=== PATIENT | male | born 1975 | race Hispanic/Latino ===

== ENCOUNTER 2019-09-14 20:21 | Observation (INO) | payer BC ==
[~2019-09-14] VITALS: Ht 177.8 cm; Wt 100.3 kg
[2019-09-14] MEDS ORDERED: IBUPROFEN 600 MG TAB PO ONE (20:45)
[2019-09-14] MEDS ORDERED: IPRATROPIUM BROMIDE 0.02% 2.5 ML NEB NEB STA ×2 (20:47→23:51)
[2019-09-14] MEDS ORDERED: ALBUTEROL SULF 0.083% NEB SOLN 3 ML NEB NEB STA ×2 (20:47→23:51)
[2019-09-14] MEDS ORDERED: DEXAMETHASONE SOD PHOS 10 MG/1 ML VIAL IM ONE (21:00)
--- NOTE | 2019-09-14 21:21 | Diagnostic Imaging Report ---
EXAMINATION: CHEST 2 VIEWS INDICATION: Sore throat, cough COMPARISON: None FINDINGS: PA and lateral views TUBES and LINES: None. LUNGS: Lungs are well inflated. Airspace opacity in the left lower posterolateral lung. Obscured left hemidiaphragm. PLEURA: No pleural effusion or pneumothorax. HEART AND MEDIASTINUM: The cardiomediastinal silhouette is unremarkable. BONES AND SOFT TISSUES: No acute osseous lesion. Soft tissues are unremarkable. UPPER ABDOMEN: No free air under the diaphragm. IMPRESSION: Airspace opacity in the left lower posterolateral lung could be pneumonia or atelectasis. Signed by: Luigi Fontana DO on 09/14/2019 9:18 PM
[2019-09-14] MEDS ORDERED: CEFTRIAXONE SOD 1 GM/NS 50 ML 50 ML IV ONE (21:56)
[2019-09-14] MEDS ORDERED: SODIUM CHLORIDE 0.9% 1000ML 1,000 ML IV STA (21:56)
[2019-09-14 23:53] LABS: BASOPHILS % 0.2 % (0.0-1.0); HEMOGLOBIN 13.8 g/dL (14.0-18.0); LYMPHOCYTES # (AUTO) 1.1 (1.0-3.2); LYMPHOCYTES % 11.1 % (18.0-39.1); MEAN CORPUSCULAR HEMOGLOBIN 29.5 pg (28-32); MEAN CORPUSCULAR HGB CONC 34.5 g/dL (31-35); MEAN CORPUSCULAR VOLUME 85.5 fL (81-99); MONOCYTES # (AUTO) 0.8 (0.2-0.8); MONOCYTES % 8.8 % (4.4-11.3); NEUTROPHILS # (AUTO) 7.5 (2.1-6.9); NEUTROPHILS % 79.6 % (38.7-80.0); PLATELET COUNT 176 x10e3/uL (140-360); RED BLOOD COUNT 4.68 x10e6/uL (4.3-5.7); RED CELL DISTRIBUTION WIDTH 14.1 % (11.7-14.4)
[2019-09-15 00:13] LABS: ALANINE AMINOTRANSFERASE 37 IU/L (0-55); ALBUMIN 3.5 g/dL (3.5-5.0); ALBUMIN/GLOBULIN RATIO 1.1 (0.8-2.0); ALKALINE PHOSPHATASE 90 IU/L (40-150); ANION GAP 15.6 mmol/L (8-16); BLOOD UREA NITROGEN 12 mg/dL (7-26); BUN/CREATININE RATIO 12 (6-25); CALCIUM 8.8 mg/dL (8.4-10.2); CARBON DIOXIDE 26 mmol/L (22-29); CHLORIDE 96 mmol/L (98-107); CREATININE, SERUM 0.98 mg/dL (0.72-1.25); EST GLOMERULAR FILTRATION RATE > 60 ML/MIN (60-); GLUCOSE 211 mg/dL (74-118); SODIUM 135 mmol/L (136-145)
[2019-09-15 00:23] LABS: POTASSIUM 2.6 mmol/L (3.5-5.1)
[2019-09-15] MEDS ORDERED: POTASSIUM CHLORIDE 20 MEQ TAB CR PO STA (00:40)
[2019-09-15] MEDS ORDERED: POTASSIUM CHLORIDE 20MEQ/100ML 100 ML IV ONE (00:45)
--- NOTE | 2019-09-15 02:30 | NUR ---
MD TO ROOM. PT O2 SAT NOTED DROPPING TO 88-92% PERIODICALLY BUT QUICKLY IMPROVES TO 96-98%. PT NOTED DIAPHORETIC. NO FEVER NOTED AT THIS TIME. BS ASSESSED, BS 236.
--- NOTE | 2019-09-15 02:45 | NUR ---
PT ASSISTED UP OUT BED TO AMBULATE IN HALLWAY ON RA PER MD REQUEST. O2 SAT ASSESSED P AMBULATING IN HALLWAY FOR 2 MINUTES. O2 SAT 96 % ON RA. Addendum: 09/15/19 at 0451 by SAMI PT ASSISTED UP OUT OF BED TO AMBULATE IN HALLWAY ON RA PER MD REQUEST. O2 SAT ASSESSED P AMBULATING IN HALLWAY FOR 2 MINUTES. O2 SAT 96 % ON RA.
--- NOTE | 2019-09-15 03:20 | NUR ---
PT O2 SAT 88-92% ON RA. PT NOTED SLEEPING. NO DISTRESS NOTED. O2 SAT IMPROVED TO 96-98% AFTER WAKING PATIENT. DR GRAYSON HOUSTON.
--- NOTE | 2019-09-15 03:38 | NUR ---
BLOOD DRAWN FOR REPEAT BMP PER MD ORDERS. LABELLED AND SENT TO LAB.
--- NOTE | 2019-09-15 03:45 | NUR ---
O2 SAT 86% ON RA. PT PLACED ON O2 3L NC. O2 SAT IMPROVED TO 98%. MD HOUSTON.
--- NOTE | 2019-09-15 04:00 | NUR ---
O2 TURNED OFF PER MD REQUEST TO ASSESS O2 ON RA. O2 97% ON RA AT THIS TIME.
[2019-09-15 04:03] LABS: ANION GAP 16.7 mmol/L (8-16); BLOOD UREA NITROGEN 10 mg/dL (7-26); BUN/CREATININE RATIO 12 (6-25); CALCIUM 8.7 mg/dL (8.4-10.2); CARBON DIOXIDE 23 mmol/L (22-29); CHLORIDE 106 mmol/L (98-107); CREATININE, SERUM 0.83 mg/dL (0.72-1.25); EST GLOMERULAR FILTRATION RATE > 60 ML/MIN (60-); GLUCOSE 246 mg/dL (74-118); POTASSIUM 3.7 mmol/L (3.5-5.1); SODIUM 142 mmol/L (136-145)
--- NOTE | 2019-09-15 04:15 | NUR ---
TO ROOM TO ASSESS VS. PT NOTED DIAPHORETIC. NO FEVER NOTED AT THIS TIME. O2 SAT 91% ON RA. O2 2L NC REPLACED. O2 SAT IMPROVED TO 98%. INFORMED.
[2019-09-15] MEDS ORDERED: AZITHROMYCIN 500MG/NS 250 ML 250 ML IV ONE (04:30)
[2019-09-15] MEDS ORDERED: SODIUM CHLORIDE 0.9% 50ML 50 ML ONE (04:48)
[2019-09-15] MEDS ORDERED: IOPAMIDOL 370 MG/ML 200 ML INFUS..BTL INJ ONE (04:48)
[2019-09-15] MEDS ORDERED: LOPRESSOR25 MG PO (05:59)
[2019-09-15] MEDS ORDERED: CLONIDINE HCL0.1 MG PO (05:59)
[2019-09-15] MEDS ORDERED: LOSARTAN-HCTZ1 EAC2 PO (05:59)
[2019-09-15] MEDS ORDERED: AMLODIPINE BESY10 MG PO (05:59)
[2019-09-15] MEDS ORDERED: LOVASTATIN40 MG PO (05:59)
[2019-09-15] MEDS ORDERED: JANUMET 50-1,01 EACH PO (05:59)
--- NOTE | 2019-09-15 06:27 | Diagnostic Imaging Report ---
EXAM: CT Chest WITH contrast 09/15/2019 4:30 AM INDICATION: Hypoxia COMPARISON: Chest radiograph 09/14/2019 TECHNIQUE: Chest was scanned utilizing a multidetector helical scanner from the lung apex through the level of the adrenal glands without administration of IV contrast. Coronal and sagittal reformations were obtained. Routine protocol was performed. IV CONTRAST: 100 mL of Isovue 300 COMPLICATIONS: None RADIATION DOSE: Total DLP: 532 mGy*cm Estimated effective dose: (DLP x 0.014 x size factor) mSv CTDIvol has been reviewed. It is below the limits set by the Radiation Protocol Committee (RPC). Dose modulation, iterative reconstruction, and/or weight based adjustment of the mA/kV was utilized to reduce the radiation dose to as low as reasonably achievable. FINDINGS: LINES/ TUBES: None. LUNGS AND AIRWAYS: A 5 mm nodule in the superior segment of the right lower lobe. Subtle groundglass nodularity in the medial aspect of the right middle lobe. Groundglass and tree-in-bud nodularity in the left lower lobe. Smooth bilateral central bronchial wall thickening. Linear opacity in the left lower lung likely atelectasis. PLEURA: The pleural spaces are clear. HEART AND MEDIASTINUM: The thyroid gland is normal. No mediastinal, hilar or axillary lymphadenopathy. The heart is normal in size. There is no pericardial effusion. Minimal calcifications in the thoracic aorta. UPPER ABDOMEN: Decreased hepatic attenuation. Multiple renal cysts including a 1.8 cm left renal superior pole simple cyst, which is slightly complex. BONES: The visualized bony thorax is within normal limits. SOFT TISSUES: Unremarkable. IMPRESSION: 1. Left lower lobe and right middle lobe medial segment pneumonia. 2. A 5 mm solid nodule in the superior segment of the right lower lobe, follow-up chest CT in 12 months is recommended. 3. Slightly complex and indeterminate cyst left renal superior pole cyst. Recommend nonemergent contrast enhanced abdominal CT renal mass protocol for further evaluation. 4. Hepatic steatosis. Signed by: Luigi Fontana DO on 09/15/2019 6:24 AM
--- NOTE | 2019-09-15 06:27 | NUR ---
IV PUMP BEATING FREQUENTLY WHEN PATIENT BENDS ARM. PT REQUEST IV SITE BE CHANGED. IV NOTED INTACT. NO REDNESS OR SWELLING NOTED. RESTARTED IV PER PT REQUEST TO [facility]. IV TO Nik Lopez [employer] APPLIED.
--- OUTSIDE RECORDS SUMMARY | 2019-09-15 06:30 | XMS REPORT ---
Author Author [facility] Address Unknown Phone Unavailable Care Team Providers Care Regulatory Associate Name Role Phone Yury HU Unavailable Unavailable Problems This patient has no known problems. Allergies, Adverse Reactions, Alerts This patient has no known allergies or adverse reactions. Medications This patient has no known medications. Results Test Description Test Time Test Comments Text Results Atomic Results Result Comments CT CHEST W 2019-09-15 06:16:00 [facility] [address] [id number] Patient Name: XAVIER SARMIENTO III MR #: [id number] : 1975 Age/Sex: 44/M Req #: [id number] Adm Physician: ONELIA HU MD Ordered by: JUDAH GALICIA DO Report #: [id number] Location: [facility] Room/Bed: [address] [address] Procedure: [id number] CT/CT CHEST W Exam Date: 09/15/19 Exam Time: 0520 REPORT STATUS: Signed EXAM: CT Chest WITH contrast 09/15/2019 4:30 AM INDICATION: Hypoxia COMPARISON: Chest radiograph 09/14/2019 TECHNIQUE: Chest was scanned utilizing a multidetector helical scanner from the lung apex through the level of the adrenal glands without administration of IV contrast. Coronal and sagittal reformations were obtained. Routine protocol was performed. IV CONTRAST: 100 mL of Isovue 300 COMPLICATIONS: None RADIATION DOSE: Total DLP: 532 mGy*cm Estimated effective dose: (DLP x 0.014 x size factor) mSv CTDIvol has been reviewed. It is below the limits set by the Radiation Protocol Committee (RPC). Dose modulation, iterative reconstruction, and/or weight based adjustment of the mA/kV was utilized to reduce the radiation dose to as low as reasonably achievable. FINDINGS: LINES/ TUBES: None. LUNGS AND AIRWAYS: A 5 mm nodule in the superior segment of the right lower lobe. Subtle groundglass nodularity in the medial aspect of the right middle lobe. Groundglass and tree-in-bud nodularity in the left lower lobe. Smooth bilateral central bronchial wall thickening. Linear opacity in the left lower lung likely atelectasis. PLEURA: The pleural spaces are clear. HEART AND MEDIASTINUM: The thyroid gland is normal. No mediastinal, hilar or axillary lymphadenopathy. The heart is normal in size. There is no pericardial effusion. Minimal calcifications in the thoracic aorta. UPPER ABDOMEN: Decreased hepatic attenuation. Multiple renal cysts including a 1.8 cm left renal superior pole simple cyst, which is slightly complex. BONES: The visualized bony thorax is within normal limits. SOFT TISSUES: Unremarkable. IMPRESSION: 1. Left lower lobe and right middle lobe medial segment pneumonia. 2. A 5 mm solid nodule in the superior segment of the right lower lobe, follow-up chest CT in 12 months is recommended. 3. Slightly complex and indeterminate cyst left renal superior pole cyst. Recommend nonemergent contrast enhanced abdominal CT renal mass protocol for further evaluation. 4. Hepatic steatosis. Signed by: Luigi Fontana DO on 09/15/2019 6:24 AM Dictated By: LUIGI FONTANA DO 3 Transcribed By: BETSEY on 09/15/19623 COPY TO: JUDAH GALICIA DO CHEST 2 VIEWS 2019-09-14 21:17:00 [address] [address] Patient Name: XAVIER SARMIENTO III MR #: [id number] : 1975 Age/Sex: 44/M Req #: [id number] Adm Physician: Ordered by: JUDAH GALICIA DO Report #: [id number] Location: Room/Bed: Procedure: [id number] DX/CHEST 2 VIEWS Exam Date: 09/14/19 Exam Time: 2100 REPORT STATUS: Signed EXAMINATION: CHEST 2 VIEWS INDICATION: Sore throat, cough COMPARISON: None FINDINGS: PA and lateral views TUBES and LINES: None. LUNGS: Lungs are well inflated. Airspace opacity in the left lower posterolateral lung. Obscured left hemidiaphragm. PLEURA: No pleural effusion or pneumothorax. HEART AND MEDIASTINUM: The cardiomediastinal silhouette is unremarkable. BONES AND SOFT TISSUES: No acute osseous lesion. Soft tissues are unremarkable. UPPER ABDOMEN: No free air under the diaphragm. IMPRESSION: Airspace opacity in the left lower posterolateral lung could be pneumonia or atelectasis. Signed by: Luigi Fontana DO on 09/14/2019 9:18 PM Dictated By: LUIGI FONTANA DO 17 Transcribed By: BETSEY on 09/14/192117 COPY TO: JUDAH GALICIA DO
--- NOTE | 2019-09-15 06:50 | NUR ---
RECEIVED REPORT FROM OFF GOING NURSE. PATIENT IN ROOM IN BED. AWAKE AND ALERT. IV ABT RUNNING ORDERED. NO S/S OF ACUTE DISTRESS. RESP EVEN AND NONLABORED. PATIENT TOOK OFF OWN N/C AND REPORTED HE WOULD PUT IT BACK ON IF HE FELT SHORT OF BREATH. DENIES ANY PAIN AT THIS TIME. PENDING ROOM ASSIGNMENT FOR ADMISSION. BED DOWN, CALL LIGHT IN REACH, WILL CONTINUE TO MONITOR.
[2019-09-15] MEDS ORDERED: DEXTROSE 50% SYRINGE 50 ML IV PRN ×2 (07:45→11:30)
[2019-09-15] MEDS: INSULIN REGULAR, HUMAN 100 UNIT/1 ML 3ML VIAL SQ SCH ×4 (08:56→21:55)
--- NOTE | 2019-09-15 11:55 | NUR ---
Pt received form ER at this time. Pt is aox4 and able to verbalize needs. Denies any pain at this time. Denies SOB he is on room air. Pt is ambulatory, skin is intact.
[2019-09-15 11:57] VITALS: BP 156/91
[2019-09-15 12:14] VITALS: BP 156/91
[2019-09-15] MEDS ORDERED: SODIUM CHLORIDE 0.9% 250ML 250 ML ONE (12:30)
[2019-09-15] MEDS: LEVOFLOXACIN 750MG/D5W 150ML 150 ML IV SCH (12:42)
[2019-09-15] MEDS: HYDROCHLOROTHIAZIDE 25 MG TAB PO SCH (13:01)
[2019-09-15] MEDS: LOSARTAN POTASSIUM 100 MG TAB PO SCH (13:01)
[2019-09-15 16:12] VITALS: BP 162/95
[2019-09-15] MEDS ORDERED: NON-FORMULARY MEDICATION (Sitagliptin Phos/Metformin Hcl (Janumet 50-1,000 Mg Tablet) 1 TA PO SCH (17:00)
[2019-09-15] MEDS ORDERED: ENOXAPARIN SOD INJ 40 MG/0.4 ML SYR SC SCH (17:00)
[2019-09-15] MEDS ORDERED: METOPROLOL TARTRATE 25 MG TAB PO SCH (17:00)
[2019-09-15] MEDS: METFORMIN HCL 500 MG TAB PO SCH (17:00)
[2019-09-15] MEDS: CLONIDINE HCL 0.1 MG TAB PO SCH (17:11)
[2019-09-15] MEDS: SITAGLIPTIN 100 MG TAB PO SCH (17:12)
[2019-09-15] MEDS: METOPROLOL TARTRATE 25 MG TAB PO SCH (17:12)
--- NOTE | 2019-09-15 18:26 | History and Physical ---
CHIEF COMPLAINT: Cough, congestion. HISTORY OF PRESENT ILLNESS: This is a 44-year-old male, morbidly obese, history of hypertension, type 2 diabetes, comes into the emergency room with complaints of cough, congestion, and fever at home. The patient reports he was at work today and started complaining of fever, cough, and congestion. He reports his colleagues have underlying pneumonia and upper respiratory infections and it seems that he has had similar symptoms. On arrival here, the patient was short of breath. He was hypoxic, oxygen sats of 86%. Imaging studies consistent with a community-acquired pneumonia. The patient was given neb treatments, antibiotics with much improvement. The patient was seen and evaluated in the emergency room. He is currently doing well. He is on room air. His oxygen saturation was 96% and his vital signs were stable. He states he is feeling much better after given antibiotics. There was no wheezing on examination. REVIEW OF SYSTEMS: Pertinent positive: Cough, congestion, fever. Pertinent negatives: Denies any chest pain, palpitation, nausea, vomiting, diarrhea, dysuria, hematuria, frequency, urgency, lightheadedness, dizziness, abdominal pain, headaches, cough, congestion, or any other complaints. The rest of 14-point review of systems have been reviewed with the patient and are negative. ALLERGIES: NO KNOWN DRUG ALLERGIES. HOME MEDICATIONS: 1. Amlodipine 10 mg. 2. Clonidine 0.1 mg p.o. b.i.d. 3. Losartan/hydrochlorothiazide 100/12.5 mg daily. 4. Lovastatin 40 mg daily. 5. Metoprolol 25 mg daily. 6. Sitagliptin and metformin mg one tab b.i.d. PAST MEDICAL HISTORY: Diabetes, hypertension, hyperlipidemia, morbid obesity. PAST SURGICAL HISTORY: Reports none. FAMILY HISTORY: Hypertension, diabetes. SOCIAL HISTORY: No drugs, no alcohol. Does not smoke. Good social support. He works. He is . LABORATORY DATA: Labs show white count is 9.4, hemoglobin 13.8, hematocrit is 40, platelets of 176. Chemistry; sodium 142, potassium 3.7, chloride 106, bicarb 23, anion gap is 16, BUN is 10, creatinine is 0.83, glucose is 246, calcium is 8.7. LFTs within normal range. Albumin was 3.5. Group A strep screen was negative. Throat cultures are pending. IMAGING STUDIES: Chest x-ray, airspace opacity in the left posterolateral lung could be pneumonia or atelectasis. Chest CT shows a left lower lobe and right middle lobe medial segment pneumonia. 5 mm nodule in superior segment of the right lower lobe. Needs outpatient followup CT. It is slightly complex . I discussed this with the patient to follow up as an outpatient with his PCP in relation to his pulmonary nodule and a renal cyst and he verbalized understanding to follow up very close with his PCP on this. PHYSICAL EXAMINATION: VITAL SIGNS: Temperature 98.2, pulse 74, respiratory rate 19, blood pressure 152/89, pulse ox is 95% on room air. GENERAL: No acute distress. Alert and oriented x3. Cooperative on examination. HEENT. Head is normocephalic and atraumatic. Eyes; pupils are equal, round, and reactive to the light bilaterally. Extraocular movements are intact bilaterally. Throat; no evidence of erythema or exudates in the posterior pharynx. Has poor dentition. NECK: Supple. Good range of motion. PULMONARY: Clear to auscultation bilaterally. No wheezing, rales, or rhonchi. No crackles appreciated. CARDIOVASCULAR: Positive S1, S2. No murmurs, rubs, or gallops appreciated. ABDOMEN: Soft, nondistended, nontender to palpation. Bowel sounds present. MUSCULOSKELETAL: Strength is 5/5 throughout. No evidence of any muscle deficits on examination. No weakness appreciated. NEUROLOGIC: Cranial nerves II through XII grossly intact. No evidence of any neurological deficits on exam. SKIN: Intact. Warm to touch. Good cap refill. PSYCHIATRIC: Normal affect and mood. EXTREMITIES: No edema. Good range of motion throughout. IMPRESSION: 1. Community-acquired pneumonia. 2. Type 2 diabetes. 3. Hypertension. 4. Morbid obesity. PLAN: At this time, the patient came in for underlying community-acquired pneumonia. We will continue with IV antibiotic therapy. The patient has improved tremendously. He is not short of breath on exam. He saturating well at room air. Resume same home medications. Add insulin sliding scale. He was given Decadron last night in the emergency room. We will get repeat labs in the morning. Put on Lovenox for DVT prophylaxis. Diabetic diet. I discussed with the patient. We will monitor him overnight and see how he does and if he is improved, which he currently looks very well, he can possibly be discharged tomorrow. We are going to monitor his fever closely. He did come in with a temperature of 102.6 last night, but since then he has been afebrile. We will continue with antibiotics for now. Monitor him very closely. Possible discharge tomorrow if stable. MD TRISTEN Menon/SHENA /[id number]
--- NOTE | 2019-09-15 19:05 | NUR ---
RECEIVED REPORT FROM PREVIOUS NURSE. CALL LIGHT WITHIN REACH. PATIENT IN BED. FAMILY AT BEDSIDE
[2019-09-15 20:00] VITALS: BP 146/85
[2019-09-15 20:39] VITALS: BP 146/85
[2019-09-15] MEDS ORDERED: SIMVASTATIN 20 MG TAB PO SCH (21:00)
[2019-09-15] MEDS ORDERED: SIMVASTATIN 40 MG TAB PO SCH (21:00)
[2019-09-15] MEDS ORDERED: AMLODIPINE BESYLATE 10 MG TAB PO SCH (21:00)
[2019-09-16] VITALS: BP 129/78
[2019-09-16 04:00] VITALS: BP 141/83
[2019-09-16 05:56] LABS: BASOPHILS % 0.1 % (0.0-1.0); EOSINOPHILS # (AUTO) 0.1 (0.0-0.4); EOSINOPHILS % 0.8 % (0.0-6.0); HEMATOCRIT 40.5 % (38.2-49.6); HEMOGLOBIN 13.6 g/dL (14.0-18.0); LYMPHOCYTES # (AUTO) 1.5 (1.0-3.2); LYMPHOCYTES % 19.1 % (18.0-39.1); MEAN CORPUSCULAR HEMOGLOBIN 28.9 pg (28-32); MEAN CORPUSCULAR HGB CONC 33.6 g/dL (31-35); MONOCYTES % 12.3 % (4.4-11.3); NEUTROPHILS # (AUTO) 5.3 (2.1-6.9); NEUTROPHILS % 67.4 % (38.7-80.0); PLATELET COUNT 183 x10e3/uL (140-360); RED BLOOD COUNT 4.71 x10e6/uL (4.3-5.7); RED CELL DISTRIBUTION WIDTH 14.1 % (11.7-14.4)
[2019-09-16 06:19] LABS: ANION GAP 12.3 mmol/L (8-16); BLOOD UREA NITROGEN 11 mg/dL (7-26); BUN/CREATININE RATIO 14 (6-25); CALCIUM 8.9 mg/dL (8.4-10.2); CARBON DIOXIDE 26 mmol/L (22-29); CHLORIDE 106 mmol/L (98-107); CREATININE, SERUM 0.76 mg/dL (0.72-1.25); EST GLOMERULAR FILTRATION RATE > 60 ML/MIN (60-); GLUCOSE 227 mg/dL (74-118); POTASSIUM 3.3 mmol/L (3.5-5.1); SODIUM 141 mmol/L (136-145)
--- NOTE | 2019-09-16 07:08 | NUR ---
Gave report to oncoming nurse. Call light within reach. Patient in bed.
[2019-09-16 07:41] VITALS: BP 149/94
[2019-09-16] MEDS: INSULIN REGULAR, HUMAN 100 UNIT/1 ML 3ML VIAL SQ SCH ×2 (07:55→11:54)
[2019-09-16] MEDS: METFORMIN HCL 500 MG TAB PO SCH (08:00)
[2019-09-16 08:05] VITALS: BP 149/94
[2019-09-16] MEDS: HYDROCHLOROTHIAZIDE 25 MG TAB PO SCH (08:12)
[2019-09-16] MEDS: LOSARTAN POTASSIUM 100 MG TAB PO SCH (08:12)
[2019-09-16] MEDS: CLONIDINE HCL 0.1 MG TAB PO SCH (08:12)
[2019-09-16] MEDS: METOPROLOL TARTRATE 25 MG TAB PO SCH (08:12)
[2019-09-16] MEDS: SITAGLIPTIN 100 MG TAB PO SCH (08:12)
[2019-09-16] MEDS ORDERED: NON-FORMULARY MEDICATION (Losartan/Hydrochlorothiazide (Losartan-Hctz 100-12.5 Mg Tab) 1 T PO SCH (09:00)
[2019-09-16] MEDS ORDERED: AMLODIPINE BESYLATE 10 MG TAB PO SCH (09:00)
--- NOTE | 2019-09-16 11:43 | NUR ---
patient was c/o cough. no SOB , Notified Dr Lopes, new order for Robitussin w codeine 10cc q4h PRN recvd,
[2019-09-16] MEDS ORDERED: GUAIFENESIN/CODEINE 10 ML CUP PO PRN (11:45)
[2019-09-16 11:48] VITALS: BP 136/82
[2019-09-16] MEDS: LEVOFLOXACIN 750MG/D5W 150ML 150 ML IV SCH (11:59)
[2019-09-16] MEDS ORDERED: LEVAQUIN500 MG PO (14:09)
[2019-09-16] MEDS ORDERED: TESSALON PERLE100 MG PO (14:11)
--- NOTE | 2019-09-16 14:31 | NUR ---
Patient discharged home, Denies any pain or SOB, Prescription given, IV canula removed with tip intact, no ss of infiltration, tele box returned, at bed side, transported via to [facility]
--- NOTE | 2019-09-16 15:45 | Discharge Summary ---
FINAL DISCHARGE DIAGNOSES: 1. Community-acquired pneumonia. 2. Type 2 diabetes. 3. Hypertension. 4. Morbid obesity. CONSULTANTS: None. SUBJECTIVE: The patient reports feeling much better today. He was actually sitting in one of the chairs. He was alert, awake, oriented, talking. No cough. No fever for more than 36 hours. He reports he is ready to go back to work. He is ready to go home actually. PHYSICAL EXAMINATION: VITAL SIGNS: Temperature is 97.1, pulse 64, respiratory rate is 18, blood pressure 136/82, pulse ox 96% on room air. LABORATORY FINDINGS: Show white count 7.8, hemoglobin 13.6, hematocrit 41, platelets of 183. Chemistry; sodium 141, potassium 3.3, chloride 106, bicarb 26, anion gap of 12, BUN is 11, creatinine is 0.76, glucose is 227, calcium is 8.9. Microbiology, throat cultures were negative. IMAGING STUDIES: CT of the chest shows a left lower lobe, right middle lobe medial segment pneumonia. A 5 mm soft nodule in superior segment of the right lower lobe. Needs outpatient followup with CT scan. Slightly complex and indeterminate cyst left renal superior pole cyst. Needs outpatient followup with CT scanning. He has hepatic steatosis. I did discuss the CT chest findings with the family and the patient at bedside about following up closely: 1. A chest CT for the 5 mm soft nodule as an outpatient. 2. Slightly complex indeterminate cyst on the left renal pole. Supposed to get further imaging studies as an outpatient, which I discussed this with the family and the patient and they verbalized understanding. Nurse present throughout the entire conversation when this occurred. HOSPITAL COURSE: This is a 44-year-old male, morbidly obese, type 2 diabetes, came into the ED with complaints of cough, congestion, and fever ongoing for the last several days prior to arrival to the hospital. While here, the patient has throat cultures that were found to be negative. Started on broad-spectrum IV antibiotic therapy. His white count was found to be normal on admission and actually on discharge it was 7.8. His hemoglobin is stable as well. He maintained on IV antibiotics. He was doing extremely well on 09/16/2019, alert, awake, talking, ambulating. No cough, no congestion, no fever for more than 36 hours. He was cleared for discharge with oral Levaquin for 10 additional days. He was also given Tessalon Perles as well for cough. He is to resume same home medications with no changes. On the day of discharge, vital signs are stable. Labs reviewed and stable. The patient is seen and evaluated, examined thoroughly on the day of discharge. No other complaints. The patient verbalized understanding and agrees to plan of care to follow up accordingly as an outpatient with primary care physician in 1 week. MEDICATIONS: See med reconciliation form including Levaquin 500 mg one tab daily x10 days, Tessalon Perles. CONDITION: Stable. DIET: Heart healthy. In the event of any worsening symptoms, the patient was advised to come back to the ED for further evaluation. He is currently afebrile. Normotensive, doing well with no complaints. He was ready to go home. He is cleared for discharge. Discharge summary took greater than 35 minutes. MD TRISTEN Menon/SHENA /[id number]
== END 2019-09-16 14:28 | disposition home or self-care (01) ==
LOC: ER 20:21 → ERHOLD 09-15 06:27 → MED/SURG3 09-15 11:57
PROVIDERS: ADMIT Internal Medicine; ATTEND Internal Medicine
DX: J18.9 Pneumonia, unspecified organism (principal); R09.02 Hypoxemia; E11.9 Type 2 diabetes mellitus without complications; I10 Essential (primary) hypertension; E78.5 Hyperlipidemia, unspecified; E66.01 Morbid (severe) obesity due to excess calories; Z83.3 Family history of diabetes mellitus; Z82.49 Family history of ischemic heart disease and other diseases of the circulatory system; Z79.84 Long term (current) use of oral hypoglycemic drugs; Z68.31 Body mass index [BMI] 31.0-31.9, adult; E87.6 Hypokalemia
CPT/HCPCS: 36415 ×3; 71046; 71260; 80048 ×2; 80053; 82948 ×2; 83518; 85025 ×2; 87070; 94640; 96365; 99284; G0378 ×2; J0456; J0696; J1100; J1650; J1817; J3480; J7030; J7050; Q9967